=== PATIENT | female | born 1945 | race Caucasian/White ===

== ENCOUNTER 2019-12-27 16:34 | Emergency (ER) | payer SELFPAY ==
[~2019-12-27] VITALS: Ht 152.4 cm; Wt 63.5 kg
[2019-12-27 17:07] VITALS: Ht 152.4 cm; Wt 63.5 kg
[2019-12-27 19:31] VITALS: BP 153/90
== END 2019-12-27 19:33 | disposition home or self-care (01) ==
LOC: ED 16:34
DX: B02.9 Zoster without complications (principal); I10 Essential (primary) hypertension; E11.9 Type 2 diabetes mellitus without complications; E78.00 Pure hypercholesterolemia, unspecified